=== PATIENT | female | born 1980 | race Caucasian/White ===

== ENCOUNTER 2024-01-19 09:59 | Emergency (ER) | payer MEDICAID ==
--- NOTE | 2024-01-19 10:08 | ERPHSYRPT ---
- History of Present Illness Time Seen by Provider: 01/19/24 10:08 Historian: patient Exam Limitations: no limitations Allergies/Adverse Reactions: No Known Drug Allergies Allergy (Unverified 12/16/12 19:37) Home Medications: ALPRAZolam 1 MG [Xanax 1 mg] 1 mg PO PRN 12/16/12 [History] Hydrocodone/Acetaminophen [Hydrocodon-Acetaminophn 10-325] 1 each PO QID 12/16/12 [History] Hx Tetanus, Diphtheria Vaccination/Date Given: No Hx Influenza Vaccination/Date Given: No - Past Medical History Pertinent Past Medical History: No - Past Surgical History Musculoskeletal: Orthopedic Surgery - Female History Hx Last Menstrual Period: 10/23/12 - Social History Smoking Status: Current every day smoker Exposure to second hand smoke: Yes Drug Use: none Patient Lives Alone: No - Departure Referrals: NATA ARMSTRONG MD [Primary Care Provider] - Follow up/PCP as directed
[2024-01-19 10:29] VITALS: TEMP 98.7
--- NOTE | 2024-01-19 10:29 | ERPHSYRPT ---
- History of Present Illness Time Seen by Provider: 01/19/24 10:08 Source: patient Exam Limitations: no limitations Patient Subjective Stated Complaint: c/o chest pain and body aches Triage Nursing Assessment: pt brought to ED by family member with c/o of chest pain that radiates to her neck and to her back. Patient states that she has been sick for 2 weeks and has a fever off and on for the past couple of days. Patient is rating pain 9/10, hurts to take a deep breath, has had a cough for the past couple of days, coughing up yellowish, green sputum. vitals wnl, skin w/n/d, gait steady, pt doesn't appear to be in any distress at this time. Physician History: This is a 43-year-old white female patient who arrives to the emergency department by private vehicle with a complaint of productive cough of yellowish-green sputum, painful deep inspiration and chest tightness that has been present intermittently with associated fever over the last 2 weeks. However in the last 2 days the patient cough has been more persistent and the deep inspiration has become painful. Patient has had no known exposures to individuals with similar symptoms. Patient has no documented history of coronary artery disease. She has had these intermittent flulike symptoms. Timing/Duration: week(s) (2), worse (Feels worse the last 2 days) Cough Quality/Degree: moderate, productive cough (Yellowish-green sputum), sputum ([place]) Possible Cause: occasional episodes Modifying Factors: Improves With: coughing Associated Symptoms: cough, muscle aches, No chest pain/soreness, No headache, No shortness of breath Allergies/Adverse Reactions: No Known Drug Allergies Allergy (Unverified 12/16/12 19:37) Home Medications: Duloxetine HCl [Cymbalta] 90 mg PO DAILY 01/19/24 [History] Lorazepam 0.5 mg [Ativan 0.5 MG] 0.5 mg PO DAILY PRN PRN 01/19/24 [History] Hx Tetanus, Diphtheria Vaccination/Date Given: No (unknown) Hx Influenza Vaccination/Date Given: No Hx Pneumococcal Vaccination/Date Given: No Travel Risk - International Travel Have you traveled outside of the country in past 3 weeks: No - Emerging Infectious Disease Symptoms: Abdominal Pain, Diarrhea, Headaches/Body Aches/ - Review of Systems Constitutional: No Symptoms Eyes: No Symptoms Ears, Nose, & Throat: No Symptoms Respiratory: Cough Cardiac: No Symptoms Abdominal/Gastrointestinal: No Symptoms Genitourinary Symptoms: No Symptoms Musculoskeletal: Arthralgias, Myalgias Skin: No Symptoms Neurological: No Symptoms Psychological: No Symptoms Endocrine: No Symptoms Hematologic/Lymphatic: No Symptoms Immunological/Allergic: No Symptoms All Other Systems: Reviewed and Negative - Past Medical History Pertinent Past Medical History: Yes Neurological History: No Pertinent History ENT History: No Pertinent History Cardiac History: No Pertinent History Respiratory History: No Pertinent History Endocrine Medical History: No Pertinent History Musculoskeletal History: No Pertinent History GI Medical History: No Pertinent History History: No Pertinent History Psycho-Social History: No Pertinent History Female Reproductive Disorders: No Pertinent History - Past Surgical History Past Surgical History: No Neuro Surgical History: No Pertinent History Cardiac: No Pertinent History Respiratory: No Pertinent History Gastrointestinal: No Pertinent History Genitourinary: No Pertinent History Musculoskeletal: Orthopedic Surgery Female Surgical History: No Pertinent History Other Surgical History: Dentures - Female History Hx Last Menstrual Period: a year ago Hx Now: No - Social History Smoking Status: Never smoker Exposure to second hand smoke: No Drug Use: none Patient Lives Alone: No - Social Determinants of Health Will the patient participate in the screening: Yes Do you worry about a steady place to live?: No Do you have any problems with any of the following?: No known problems In the past 12 months,have you had to go without utilities?: No Transportation Issues: No Has anyone in your support network made you feel unsafe?: No Have you or anyone in your house had to go without enough: No - Nursing Vital Signs Nursing Vital Signs: Initial Vital Signs Temperature 98.7 F 01/19/24 10:05 Pulse Rate 107 H 01/19/24 10:05 Respiratory Rate 19 01/19/24 10:05 Blood Pressure 117/72 01/19/24 10:05 O2 Sat by Pulse Oximetry 98 01/19/24 10:05 Pain Scale Pain Intensity 9 - Physical Exam General Appearance: no apparent distress, alert, anxiety Eye Exam: PERRL/EOMI, eyes nml inspection Ears, Nose, Throat Exam: normal ENT inspection, moist mucous membranes Neck Exam: normal inspection, non-tender, supple, full range of motion Respiratory Exam: normal breath sounds, lungs clear, airway intact, No chest tenderness, No respiratory distress Cardiovascular Exam: tachycardia Gastrointestinal/Abdomen Exam: soft, normal bowel sounds, No tenderness Pelvic Exam: not done Rectal Exam: not done Back Exam: normal inspection, normal range of motion, No CVA tenderness, No vertebral tenderness Extremity Exam: normal inspection, normal range of motion, pelvis stable Neurologic Exam: alert, oriented x 3, cooperative, regional sales associate II-XII nml as tested, nml cerebellar function, nml station & gait, sensation nml Skin Exam: normal color, warm, No dry Lymphatic Exam: No adenopathy SpO2 Interpretation: normal SpO2: 98 O2 Delivery: Room Air - Course Nursing assessment & vital signs reviewed: Yes EKG Interpreted by Me: RATE (97), Sinus Rhythm, NORMAL AXIS, NORMAL INTERVALS, NORMAL QRS, NORMAL ST-T, Other (No acute ischemia on today's twelve-lead EKG. QTc is 445) Ordered Tests: Active Orders 24 hr Category Date Time Status [employer] STAT Care 01/19/24 10:30 Active EKG-ER Only STAT Care 01/19/24 10:29 Active CHEST 1 VIEW (PORTABLE) Stat Exams 01/19/24 10:30 Taken CBC W DIFF Stat Lab 01/19/24 11:58 Completed CMP Stat Lab 01/19/24 11:58 Completed D-DIMER QUANTITATIVE Stat Lab 01/19/24 11:58 Completed MONO SCREEN Stat Lab 01/19/24 11:58 Completed Manual Differential NC Stat Lab 01/19/24 11:58 Completed TROPONIN Q4H Lab 01/19/24 11:58 Completed TROPONIN Q4H Lab 01/19/24 14:30 Ordered TROPONIN Q4H Lab 01/19/24 18:30 Ordered Medication Summary Discontinued Medications Generic Name Dose Route Start Last Admin Trade Name Lokeshq PRN Reason Stop Dose Admin Hydrocodone Bitart/Acetaminophen 15 ml 01/19/24 12:26 01/19/24 12:39 Hydrocodone/Acetaminophen 5 Ml Udcup PO 01/19/24 12:27 15 ml STAT STA Administration Hydrocodone Bitart/Acetaminophen Confirm 01/19/24 12:38 Hydrocodone/Acetaminophen 5 Ml Udcup Administered 01/19/24 12:39 Dose 15 ml .ROUTE .STK-MED ONE Levofloxacin 500 mg 01/19/24 12:25 01/19/24 12:39 Levofloxacin 500 Mg Tablet PO 01/19/24 12:26 500 mg STAT ONE Administration Levofloxacin Confirm 01/19/24 12:38 Levofloxacin 500 Mg Tablet Administered 01/19/24 12:39 Dose 500 mg .ROUTE .STK-MED ONE Prednisone 20 mg 01/19/24 12:26 01/19/24 12:40 Prednisone 20 Mg Tablet PO 01/19/24 12:27 20 mg STAT ONE Administration Prednisone Confirm 01/19/24 12:38 Prednisone 20 Mg Tablet Administered 01/19/24 12:39 Dose 20 mg .ROUTE .STK-MED ONE Lab/Rad Data: Laboratory Result Diagrams 01/19/24 11:58 01/19/24 11:58 Laboratory Results 01/19/24 01/19/24 01/19/24 Range/Units 11:58 11:58 11:58 WBC (3.98-10.04) x10^3/uL RBC (3.93-5.22) x10^6/uL Hgb (11.2-15.7) g/dL Hct (34.1-44.9) % MCV (79.4-94.8) fL MCH (25.6-32.2) pg MCHC (32.2-35.5) g/dL RDW (11.7-14.4) % Plt Count (182-369) x10^3/uL MPV (9.4-12.3) fL D-Dimer 0.41 (0.0-0.50) mg/L Sodium (135-145) mmol/L Potassium (3.5-5.1) mmol/L Chloride (98-107) mmol/L Carbon Dioxide (22-30) mmol/L Anion Gap (5-15) MEQ/L BUN (7-17) mg/dL Creatinine (0.52-1.04) mg/dL Estimated GFR ML/MIN Glucose (74-106) mg/dL Calcium (8.4-10.2) mg/dL Total Bilirubin (0.2-1.3) mg/dL AST (14-36) U/L ALT (0-35) U/L Alkaline Phosphatase (38-126) U/L Troponin I < 0.012 (0.000-0.033) ng/mL Serum Total Protein (6.3-8.2) g/dL Albumin (3.5-5.0) g/dL Monoscreen POSITIVE A (NEGATIVE) Influenza Type A Ag (NEGATIVE) Influenza Type B Ag (NEGATIVE) RSV (PCR) (NEGATIVE) SARS-CoV-2 (PCR) (NEGATIVE) Group A Strep Antibody (NEGATIVE) 01/19/24 01/19/24 01/19/24 Range/Units 11:58 11:58 11:16 WBC 14.0 H (3.98-10.04) x10^3/uL RBC 4.47 (3.93-5.22) x10^6/uL Hgb 14.4 (11.2-15.7) g/dL Hct 43.0 (34.1-44.9) % MCV 96.2 H (79.4-94.8) fL MCH 32.2 (25.6-32.2) pg MCHC 33.5 (32.2-35.5) g/dL RDW 12.4 (11.7-14.4) % Plt Count 331 (182-369) x10^3/uL MPV 9.7 (9.4-12.3) fL D-Dimer (0.0-0.50) mg/L Sodium 141 (135-145) mmol/L Potassium 4.5 (3.5-5.1) mmol/L Chloride 106 (98-107) mmol/L Carbon Dioxide 22 (22-30) mmol/L Anion Gap 18.5 H (5-15) MEQ/L BUN 10 (7-17) mg/dL Creatinine 0.57 (0.52-1.04) mg/dL Estimated GFR 116.3 ML/MIN Glucose 112 H (74-106) mg/dL Calcium 10.1 (8.4-10.2) mg/dL Total Bilirubin 1.10 (0.2-1.3) mg/dL AST 29 (14-36) U/L ALT 30 (0-35) U/L Alkaline Phosphatase 93 (38-126) U/L Troponin I (0.000-0.033) ng/mL Serum Total Protein 8.0 (6.3-8.2) g/dL Albumin 4.6 (3.5-5.0) g/dL Monoscreen (NEGATIVE) Influenza Type A Ag NEGATIVE (NEGATIVE) Influenza Type B Ag NEGATIVE (NEGATIVE) RSV (PCR) NEGATIVE (NEGATIVE) SARS-CoV-2 (PCR) NEGATIVE (NEGATIVE) Group A Strep Antibody (NEGATIVE) 01/19/24 Range/Units 11:16 WBC (3.98-10.04) x10^3/uL RBC (3.93-5.22) x10^6/uL Hgb (11.2-15.7) g/dL Hct (34.1-44.9) % MCV (79.4-94.8) fL MCH (25.6-32.2) pg MCHC (32.2-35.5) g/dL RDW (11.7-14.4) % Plt Count (182-369) x10^3/uL MPV (9.4-12.3) fL D-Dimer (0.0-0.50) mg/L Sodium (135-145) mmol/L Potassium (3.5-5.1) mmol/L Chloride (98-107) mmol/L Carbon Dioxide (22-30) mmol/L Anion Gap (5-15) MEQ/L BUN (7-17) mg/dL Creatinine (0.52-1.04) mg/dL Estimated GFR ML/MIN Glucose (74-106) mg/dL Calcium (8.4-10.2) mg/dL Total Bilirubin (0.2-1.3) mg/dL AST (14-36) U/L ALT (0-35) U/L Alkaline Phosphatase (38-126) U/L Troponin I (0.000-0.033) ng/mL Serum Total Protein (6.3-8.2) g/dL Albumin (3.5-5.0) g/dL Monoscreen (NEGATIVE) Influenza Type A Ag (NEGATIVE) Influenza Type B Ag (NEGATIVE) RSV (PCR) (NEGATIVE) SARS-CoV-2 (PCR) (NEGATIVE) Group A Strep Antibody NOT DETECTED (NEGATIVE) - Progress Progress: improved, re-examined Air Movement: good Progress Note: 01/19/24 12:28 My medical decision making of the assignment of moderate complexity to this patient's medical issue today is based on review of the patient's past medical history, review the patient's medication list, reviewed patient drug allergy list, history present illness and physical findings on examination. The workup in this patient includes placement of intravenous line, CBC, CMP, twelve-lead EKG, troponin level, chest x-ray, viral swabs, strep test. The patient is refusing intravenous line placement. She does not want any injections of medication. Differential diagnosis includes but is not limited to viral illness, pneumonia, myocardial infarction, arrhythmia The preliminary report of the patient's chest x-ray was interpreted by me. The patient appears to have a right lower lobe lung infiltrate. Blood Culture(s) Obtained: Yes Antibiotics given: Yes Counseled pt/family regarding: lab results, diagnosis, need for follow-up, rad results Medical Desision Making - Diagnostic Testing Diagnostic test were ordered, analyzed, and reviewed by me: Yes Radiological Interpretation: Interpreted by me - Risk of complications The pt has a mod risk of morbidity or mortality based on: Need for prescription drug management - Departure Departure Disposition: Home Clinical Impression: Right pulmonary infiltrate on CXR, Mononucleosis Condition: Stable Critical Care Time: No Referrals: NATA ARMSTRONG MD [Primary Care Provider] - Follow up/PCP as directed Additional Instructions: Drink plenty of fluids. Avoid exposure to any type of smoke. Take your antibiotics and other medications as prescribed. Call your primary care provider on 12/22/2023 to make arrangement for follow-up appointment to be seen in the next 3 to 5 days follow-up on the right lower lobe infiltrate. Prescriptions: Prednisone 10 mg [Deltasone 10 mg] 10 mg PO TID #12 tablet Hydrocodone/Acetaminophen [Hydrocodone-Acetamn 7.5-325/15] 10 ml PO Q8H PRN #120 ml MDD 30 ml PRN Reason: Cough Levofloxacin [Levaquin 500 MG Tablet] 500 mg PO DAILY #7 tablet Albuterol 8 gm Mdi Hfa [Ventolin Hfa MDI] 8 gm IH Q4H #1 unit
[2024-01-19 12:01] LABS: INFLUENZA A NEGATIVE (NEGATIVE); INFLUENZA B NEGATIVE (NEGATIVE); RESPIRATORY SYNCTIAL VIRUS NEGATIVE (NEGATIVE); SARS-CoV-2 Xpert Express NEGATIVE (NEGATIVE)
[2024-01-19 12:06] VITALS: O2SAT 98
[2024-01-19 12:06] LABS: Hemoglobin 14.4 g/dL (11.2-15.7); Mean Cell Volume 96.2 fL (79.4-94.8); Mean Corpuscular Hemoglobin 32.2 pg (25.6-32.2); Mean Corpuscular Hgb Concent. 33.5 g/dL (32.2-35.5); Mean Platelet Volume 9.7 fL (9.4-12.3); Platelet Count 331 x10^3/uL (182-369); Red Blood Count 4.47 x10^6/uL (3.93-5.22); Red Cell Distribution Width 12.4 % (11.7-14.4)
[2024-01-19 12:30] LABS: ALBUMIN 4.6 g/dL (3.5-5.0); ANION GAP 18.5 MEQ/L (5-15); BILIRUBIN,TOTAL 1.1 mg/dL (0.2-1.3); Calcium 10.1 mg/dL (8.4-10.2); Creatinine 1 0.57 mg/dL (0.52-1.04); EST GLOMERULAR FILTRATION RATE 116.3 ML/MIN; Potassium 4.5 mmol/L (3.5-5.1)
[2024-01-19] MEDS ORDERED: DELTASONE 20 MG ONE (12:38)
[2024-01-19] MEDS ORDERED: Levofloxacin 500 MG Tablet ONE (12:38)
[2024-01-19] MEDS ORDERED: HYDROCODONE-ACETAMIN 2.5-108/5 ML SOLUTION ONE (12:38)
[2024-01-19] MEDS: HYDROCODONE-ACETAMIN 2.5-108/5 ML SOLUTION PO STA (12:39)
[2024-01-19] MEDS: Levofloxacin 500 MG Tablet PO ONE (12:39)
[2024-01-19] MEDS: DELTASONE 20 MG PO ONE (12:40)
[2024-01-19 13:04] VITALS: BP 110/68; PULSE 112; RESP 14
[2024-01-19 14:14] LABS: BAND 11 % (0.0-2.0); Lymphocytes 3 % (19.3-51.7); Monocyte 4 % (4.7-12.5); Neutrophils 82 % (34.0-71.1); Total Cells Counted 100
[2024-01-19 14:15] LABS: Platelet Estimate NORMAL (NORMAL)
--- NOTE | 2024-01-19 20:44 | XRAY ---
Indication: Fever and cough. Comparison: None Portable chest demonstrates right base consolidating airspace disease. Remaining heart, left lung, and bony thorax normal. Comment: Right lung finding not reported by interpreting ER clinician. Telephone report given to Dr. Crain at 2040 hrs. on January 19, 2024.
== END 2024-01-19 13:22 | disposition home or self-care (01) ==
LOC: ED 09:59
DX: B27.90 Infectious mononucleosis, unspecified without complication (principal); R91.8 Other nonspecific abnormal finding of lung field; R05.1 Acute cough; R07.9 Chest pain, unspecified; Z79.891 Long term (current) use of opiate analgesic; Z79.52 Long term (current) use of systemic steroids; Z79.899 Other long term (current) drug therapy
CPT/HCPCS: 0241U; 36415; 71045; 80053; 84484; 85025; 85379; 86308; 87651; 93005; 93041; 99285; 99284; A9270-GY

== ENCOUNTER 2024-12-22 16:27 | Emergency (ER) | payer BC ==
[2024-12-22 17:40] VITALS: BP 150/88; RESP 18; TEMP 96.8
--- NOTE | 2024-12-22 17:48 | ERPHSYRPT ---
- History of Present Illness Patient Subjective Stated Complaint: pt here for pain to throat for about 3 days now, no fever,aslo reports nack pain, she has not had any otc pain meds since 0700 today, Triage Nursing Assessment: pt alert, walked in, resp easy, skin w/d/p. moves all ext well, no edema noted. no cough or runny nose, mucus membranes moist Physician History: Sore throat and neck pain, onset of symptoms 2 days ago, she difficulty sleeping due to her symptoms, she exposed her to her 3 kids to go to school, show any difficulty breathing Severity: moderate ENT Location: throat Associated Symptoms: nasal congestion/drainage, neck pain (anterior) Allergies/Adverse Reactions: No Known Drug Allergies Allergy (Verified 09/06/24 19:18) Home Medications: Duloxetine HCl [Cymbalta] 60 mg PO DAILY 01/19/24 [History] Butalbital/Acetaminophen [Butalbital-Acetaminophn 50-300] 1 each PO Q4HPRN PRN 09/06/24 [History] Cyclobenzaprine HCl 10 mg [Cyclobenzaprine 10 MG] 10 mg PO TID 09/06/24 [History] LORazepam [Lorazepam] 1 mg PO DAILY 09/06/24 [History] Ropinirole HCl 0.5 mg [Requip 0.5 MG] 0.5 mg PO HS 09/06/24 [History] Sumatriptan Succinate [Imitrex] 50 mg PO DAILY 09/06/24 [History] Topiramate 25 mg [Topamax 25 MG] 25 mg PO DAILY 09/06/24 [History] Hx Tetanus, Diphtheria Vaccination/Date Given: No Hx Influenza Vaccination/Date Given: No Hx Pneumococcal Vaccination/Date Given: No Immunizations Up to Date: Yes Travel Risk - International Travel Have you traveled outside of the country in past 3 weeks: No - Emerging Infectious Disease Are you exhibiting symptoms associated with any current EIDs: Yes Symptoms: Headaches/Body Aches/ - Past Medical History Pertinent Past Medical History: Yes Neurological History: No Pertinent History ENT History: No Pertinent History Cardiac History: No Pertinent History Respiratory History: No Pertinent History Endocrine Medical History: No Pertinent History Musculoskeletal History: No Pertinent History GI Medical History: No Pertinent History History: No Pertinent History Psycho-Social History: No Pertinent History Female Reproductive Disorders: No Pertinent History - Past Surgical History Past Surgical History: No Neuro Surgical History: No Pertinent History Cardiac: No Pertinent History Respiratory: No Pertinent History Gastrointestinal: No Pertinent History Genitourinary: No Pertinent History Musculoskeletal: Orthopedic Surgery Female Surgical History: No Pertinent History Other Surgical History: Dentures - Female History Hx Last Menstrual Period: 2022 Hx Now: No - Social History Smoking Status: Never smoker Exposure to second hand smoke: Yes Drug Use: none - Social Determinants of Health Will the patient participate in the screening: Yes Do you worry about a steady place to live?: No Do you have any problems with any of the following?: No known problems In the past 12 months,have you had to go without utilities?: No Transportation Issues: No Has anyone in your support network made you feel unsafe?: No Have you or anyone in your house had to go w/o enough food: No - Nursing Vital Signs Nursing Vital Signs: Initial Vital Signs Pulse Rate 80 12/22/24 17:32 Respiratory Rate 18 12/22/24 17:32 Blood Pressure 150/88 12/22/24 17:32 O2 Sat by Pulse Oximetry 99 12/22/24 17:32 Pain Scale Pain Intensity 8 - Physical Exam General Appearance: no apparent distress, alert Eye Exam: bilateral eye: PERRL, EOMI Ear Exam: bilateral ear: auricle normal, canal normal, TM normal Nasal Exam: normal inspection Throat Exam: pharynx normal, moist mucus membranes, No tonsillar exudate Neck Exam: normal inspection, non-tender, supple, full range of motion, lymphadenopathy (R), lymphadenopathy (L) Cardiovascular/Respiratory Exam: normal breath sounds, regular rate/rhythm Abdominal Exam: non-tender, soft Neurologic Exam: alert, oriented x 3, sensation nml, No motor deficits Skin Exam: normal color, warm, dry SpO2 Interpretation: normal SpO2: 99 - Progress Progress Note: 12/22/24 17:46 Outpatient follow-up and treatment - Departure Departure Disposition: Home Clinical Impression: Acute pharyngitis Qualifiers: Pharyngitis/tonsillitis etiology: unspecified etiology Qualified Code(s): J02.9 - Acute pharyngitis, unspecified Condition: Stable Critical Care Time: No Referrals: ENCINAS,AUSTIN, MD [Primary Care Provider, [facility]] - Follow up PCP 10 days Instructions: Sore Throat, Adult (DC) Prescriptions: Doxycycline Hyclate 100 mg [Vibramycin 100 MG] 100 mg PO BID #14 tab
[2024-12-22 18:03] VITALS: PULSE 97; O2SAT 97
== END 2024-12-22 18:05 | disposition home or self-care (01) ==
LOC: ED 16:27
DX: J02.9 Acute pharyngitis, unspecified (principal); M54.2 Cervicalgia; Z79.899 Other long term (current) drug therapy